=== PATIENT | male | born 1960 | race Two or more races ===

== ENCOUNTER 2017-10-03 12:25 | Outpatient (CLI) | payer OTHER | END 2017-10-03 12:31 | disposition home or self-care (01) | LOC: SONOGRAMA 12:25 | DX: N50.812 Left testicular pain (principal) ==

== ENCOUNTER 2017-11-19 09:14 | Outpatient (CLI) | payer OTHER | END 2017-11-19 09:25 | disposition home or self-care (01) | LOC: SONOGRAMA 09:14 | DX: E29.1 Testicular hypofunction (principal); I86.1 Scrotal varices ==

== ENCOUNTER 2018-02-15 13:01 | Outpatient (CLI) | payer OTHER | END 2018-02-15 14:15 | disposition home or self-care (01) | LOC: RAD 13:01 | DX: E29.1 Testicular hypofunction (principal); N20.0 Calculus of kidney; I86.1 Scrotal varices ==

== ENCOUNTER → 2021-03-28 15:01 | Outpatient (CLI) | payer OTHER | END | disposition home or self-care (01) | LOC: LAB 15:01 | PROVIDERS: ATTEND Urology | DX: R97.20 Elevated prostate specific antigen [PSA] (principal) ==

== ENCOUNTER 2021-05-25 07:20 | Outpatient (CLI) | payer OTHER | END 2021-05-25 07:35 | disposition home or self-care (01) | LOC: SONOGRAMA 07:20 | PROVIDERS: ATTEND Urology | DX: C61 Malignant neoplasm of prostate (principal); D29.1 Benign neoplasm of prostate; R97.20 Elevated prostate specific antigen [PSA] ==

== ENCOUNTER 2021-06-29 07:11 | Outpatient (CLI) | payer OTHER | END 2021-06-29 07:14 | disposition home or self-care (01) | LOC: NUCLEAR 07:11 | PROVIDERS: ATTEND Urology | DX: C61 Malignant neoplasm of prostate (principal) | CPT/HCPCS: 78803; A9503 ==

== ENCOUNTER 2021-07-04 10:17 | Outpatient (CLI) | payer OTHER | END 2021-07-04 10:18 | disposition home or self-care (01) | LOC: LAB 10:17 | PROVIDERS: ATTEND Internal Medicine | DX: Z20.828 Contact with and (suspected) exposure to other viral communicable diseases (principal); B34.1 Enterovirus infection, unspecified ==

== ENCOUNTER 2021-07-05 07:11 | Outpatient (CLI) | payer OTHER | END 2021-07-05 07:20 | disposition home or self-care (01) | LOC: NUCLEAR 07:11 | PROVIDERS: ATTEND Urology | DX: I25.10 Atherosclerotic heart disease of native coronary artery without angina pectoris (principal); I50.1 Left ventricular failure, unspecified | CPT/HCPCS: 78452; 93017; A9500 ==